=== PATIENT | male | born 1995 ===

== ENCOUNTER 2025-01-05 12:22 | Emergency (ER) | payer BC ==
[~2025-01-05] VITALS: Ht 182.9 cm; Wt 90.7 kg
[~2025-01-05 12:22] MED LIST: CEPH250A PO; RXOXYACE PO; RXPROM25 PO
[2025-01-05] MEDS ORDERED: Lidocaine 4% 1 Patch TOP ONE (12:45)
[2025-01-05] MEDS ORDERED: TiZANidine HCl 4 MG Tab PO ONE (12:45)
[2025-01-05] MEDS ORDERED: Ketorolac Tromethamine 15mg Vial IM ONE (12:45)
[2025-01-05] MEDS ORDERED: HYDROmorphone HCl/Pf 1MG SYR IM ONE (15:30)
[2025-01-05] MEDS ORDERED: MethylPREDNISolone Sod Succ 125 MG Vial IV ONE (15:55)
[2025-01-05] MEDS ORDERED: HYDROmorphone HCl/Pf 1MG SYR IV ONE (16:05)
[2025-01-05] MEDS ORDERED: Ketorolac Tromethamine 15mg Vial IV ONE (16:30)
[2025-01-05] MEDS ORDERED: Dexamethasone Sod Phos 10 MG/ML 1ML VIAL IV ONE (16:30)
[2025-01-05] MEDS ORDERED: Cyclobenzaprine HCl 10 MG Tab PO ONE (16:35)
[2025-01-05 16:43] LABS: BASOPHILS ABSOLUTE AUTO 0.03 K/mm3 (0.00-0.23); BASOPHILS PERCENT AUTO 0 % (0-2); EOSINOPHILS ABSOLUTE AUTO 0.02 K/mm3 (0.00-0.68); EOSINOPHILS PERCENT AUTO 0 % (0-6); Hematocrit 48.7 % (37.0-53.0); Hemoglobin 17.2 g/dL (13.5-17.5); IMMATURE GRAN ABSOLUTE AUTO 0.03 K/mm3 (0.00-0.10); IMMATURE GRAN PERCENT AUTO 0 % (0-1); LYMPHOCYTES ABSOLUTE AUTO 1.66 K/mm3 (0.84-5.20); LYMPHOCYTES PERCENT AUTO 17 % (21-46); MONOCYTES ABSOLUTE AUTO 0.58 K/mm3 (0.16-1.47); MONOCYTES PERCENT AUTO 6 % (4-13); Mean Corpuscular HGB 30.9 pg (26.0-34.0); Mean Corpuscular HGB Conc 35.3 g/dL (31.5-36.5); Mean Corpuscular Volume 88 fL (80-100); Mean Platelet Volume 9.5 fL (9.1-12.4); NEUTROPHILS ABSOLUTE AUTO 7.64 K/mm3 (1.96-9.15); NEUTROPHILS PERCENT AUTO 77 % (41-73); Platelet Count 349 K/mm3 (150-400); RDW Coefficient Variation 12.6 % (11.7-14.2); RDW Standard Deviation 40.3 fL (35.1-46.3); Red Blood Cell Count 5.56 M/mm3 (4.30-5.90); White Blood Cell Count 9.96 K/mm3 (4.00-11.30)
[2025-01-05 16:45] LABS: Bun/Creatinine Ratio 17.8 (12.0-20.0); Calcium, Blood 8.7 mg/dL (8.5-10.1); Creatinine, Blood 1.01 mg/dL (0.60-1.20); Potassium, Blood 4.2 mmol/L (3.5-5.5)
[2025-01-05 17:09] VITALS: BP 116/56
[2025-01-05] MEDS ORDERED: HYDR1TAB94 PO ×2 (18:14→18:24)
[2025-01-05] MEDS ORDERED: CYCL10 PO ×2 (18:14→18:24)
[2025-01-05] MEDS ORDERED: PRED20 PO ×2 (18:14→18:24)
== END 2025-01-05 18:35 | disposition home or self-care (01) ==
LOC: ER 12:22
PROVIDERS: Student in an Organized Health Care Education/Training Program
DX: M51.369 Other intervertebral disc degeneration, lumbar region without mention of lumbar back pain or lower extremity pain (principal); M51.379 Other intervertebral disc degeneration, lumbosacral region without mention of lumbar back pain or lower extremity pain; M54.50 Low back pain, unspecified; Z90.49 Acquired absence of other specified parts of digestive tract; Z91.048 Other nonmedicinal substance allergy status; Z59.89 Other problems related to housing and economic circumstances
CPT/HCPCS: 72131; 80048; 85025; 96372-59; 96374; 96375; 99284-25; A9270; J1100; J1171; J1885